=== PATIENT | male | born 1970 | race Caucasian/White ===

== ENCOUNTER 2016-08-09 12:14 | Day surgery (SDC) | payer BC ==
[2016-08-06 12:19] LABS: HEMATOCRIT 47.3 % (40.0-51.0)
--- NOTE | ~2016-08-09 | OP ---
Record Of Operation [facility] [address] [place]. [address] NAME: LEONEL KAMARA : 74 STATUS : [facility] UNIT#: [id number] AGE: 45 ADM/REG DATE : 08/09/16 MR#: [id number] REPORT SERV DATE: 08/09/16 DICTATED BY: MAT EDWARDS III DATE: 08/09/16 REPORT STATUS : Draft TRANSCRIBED BY: MODCarline DATE: 08/09/16 DATE OF PROCEDURE: 08/09/2016 PREOPERATIVE DIAGNOSIS: Patellofemoral arthritis, with chondral lesion, lateral patella facet. POSTOPERATIVE DIAGNOSIS: Patellofemoral arthritis, with chondral lesion, lateral patella facet. SURGICAL PROCEDURE PERFORMED: 1. Arthroscopic thermal chondroplasty, lateral patella facet, left knee. 2. Arthroscopic lateral retinacular release, left knee. SURGEON: Mat Edwards M.D. [employer] RO[employer]ER: Javier Butler. ANESTHESIA: General. ANTIBIOTICS: Ancef 2 g. COMPLICATIONS: None. CRYSTALLOIDS: 800 mL. ESTIMATED BLOOD LOSS: None. TOURNIQUET TIME: 16 minutes. PROCEDURE IN DETAIL: The patient was brought to the operating room, placed on the table in supine position. General anesthesia was induced. Ancef 2 g was administered intravenously in the operating room. Pneumonic tourniquet was applied to the left upper thigh along with the arthroscopic leg giron. Left lower extremity was prepped and draped in the usual sterile fashion. It was exsanguinated with a 6-inch Esmarch. Tourniquet was inflated to 350 mmHg. Assuring good anesthesia, the arthroscope was inserted through a standard anterolateral portal. The suprapatellar pouch was first visualized. It was inflated with sterile normal saline by means of the arthroscopic pump. The patellofemoral joint was visualized, there was a chondral lesion about 2 cm x 3 cm in size to the lateral patellar facet extending to the median ridge. The [employer] nephew chondral blader was used to perform a thermal chondroplasty through a standard anterolateral portal. The wand was held off the cartilage and turned at 45 degrees angle to apply just enough heat to smoothen out. At this point, the intercondylar notch was visualized, the anterior cruciate ligament appeared normal. The lateral compartment revealed normal lateral meniscus, lateral femoral condyle, and lateral tibial plateau. The medial compartment revealed normal medial femoral condyle, medial tibial plateau, and medial meniscus. At this point, the knee was placed in extension. The [employer] ablator was used to perform a lateral arthroscopic lateral Record Of Operation [facility] [address] [place]. [address] NAME: LEONEL KAMARA : 74 STATUS : [facility] PAT#: [id number] AGE: 45 ADM/REG DATE : 08/09/16 MR#: [id number] REPORT SERV DATE: 08/09/16 DICTATED BY: MAT EDWARDS III DATE: 08/09/16 REPORT STATUS : Draft TRANSCRIBED BY: MODL DATE: 08/09/16 retinacular release. A very nice release was obtained. Hopefully, this will decompress the patellofemoral joint and relieve the patient's symptoms. No further pathology was appreciated. Thorough irrigation was carried out. The arthroscope was switched to the anteromedial portal. No further pathology was appreciated. Thorough irrigation was carried out. Instrumentation was removed. Portals were closed with a 4-0 Monocryl. Benzoin and Steri-Strips were applied. Knee was injected with 30 mL of 0.5% Marcaine solution, with 80 mg of Depo-Medrol. The patient tolerated the procedure well and brought to the recovery room in satisfactory condition. Tourniquet was released after 16 minutes. Postoperative compressive dressings were applied. LAITH/NANO Mat Edwards III, M.D. / [id number] CC: Tone Thomas III, M.D.
[~2016-08-09 12:14] MED LIST: CYANO1000T PO; FLOMAX4 PO; FLONASE NAS; GREEN TEA; MULTIVIT/MIN PO; NORCO1 TAB PO; P5 PO; PROZAC PO; TUMERIC; VOLT50 PO; X5 PO; [UNRECOGNIZED DRUG - CODE] PO; [UNRECOGNIZED DRUG - OTHER]; [UNRECOGNIZED DRUG - OTHER]
== END 2016-08-09 17:21 | disposition home or self-care (01) ==
LOC: SDC 12:14
PROVIDERS: Orthopaedic Surgery
PROC: 0MNP4ZZ Release Left Knee Bursa and Ligament, Percutaneous Endoscopic Approach (ICD-10-PCS; 2016-08-09)
PROC: 0SBD4ZZ Excision of Left Knee Joint, Percutaneous Endoscopic Approach (ICD-10-PCS; principal; 2016-08-09 12:45)
DX: M17.12 Unilateral primary osteoarthritis, left knee (principal); E78.00 Pure hypercholesterolemia, unspecified; G47.33 Obstructive sleep apnea (adult) (pediatric); N40.0 Benign prostatic hyperplasia without lower urinary tract symptoms; F41.9 Anxiety disorder, unspecified; F12.90 Cannabis use, unspecified, uncomplicated; F32.9 Major depressive disorder, single episode, unspecified; J34.2 Deviated nasal septum; R35.0 Frequency of micturition; L03.90 Cellulitis, unspecified; R32 Unspecified urinary incontinence; E66.9 Obesity, unspecified; K40.20 Bilateral inguinal hernia, without obstruction or gangrene, not specified as recurrent; Z68.41 Body mass index [BMI] 40.0-44.9, adult; Z87.891 Personal history of nicotine dependence; Z90.89 Acquired absence of other organs; Z98.890 Other specified postprocedural states; Z79.899 Other long term (current) drug therapy; Z79.51 Long term (current) use of inhaled steroids; Z79.891 Long term (current) use of opiate analgesic
CPT/HCPCS: 85014; 85018; A9270-GY; J0690; J1030; J2250; J2274; J2405; J2710; J3010